=== PATIENT | male | born 1975 | race Caucasian/White ===

== ENCOUNTER 2016-12-15 13:40 | Emergency (ER) | payer BC ==
[~2016-12-15] VITALS: Ht 177.8 cm; Wt 115.0 kg
[~2016-12-15 13:40] MED LIST: SOTA80TA18 PO; WARF7.5T PO
[2016-12-15] MEDS ORDERED: SODIUM CHLORIDE 0.9% 1,000ML IVBOLUS ONE (14:30)
[2016-12-15] MEDS ORDERED: SODIUM CHLORIDE FLUSH 10ML SYR IVF ONE (14:30)
[2016-12-15 14:40] LABS: BLOOD UREA NITROGEN 12 mg/dL (7-18)
[2016-12-15 14:48] LABS: IS PT STATUS REG ER OR PRE ER? YES
[2016-12-15] MEDS ORDERED: PROPOFOL 10 MG/ML, 20ML ONE (15:24)
[2016-12-15] MEDS ORDERED: PROPOFOL 10 MG/ML, 20ML IVPush ONE (15:30)
[2016-12-15 18:11] VITALS: BP 142/71
== END 2016-12-15 18:14 | disposition home or self-care (01) ==
LOC: ED 17:30
DX: I48.0 Paroxysmal atrial fibrillation (principal); I74.9 Embolism and thrombosis of unspecified artery; R00.2 Palpitations; I48.92 Unspecified atrial flutter
CPT/HCPCS: 36415; 80048; 82040; 84484; 85025; 85610; 85730; 93005; 96361; 96374; 99291; J2704; J7030

== ENCOUNTER 2017-07-20 09:07 | Emergency (ER) | payer BC ==
[~2017-07-20] VITALS: Ht 177.8 cm; Wt 113.5 kg
[2017-07-20] MEDS ORDERED: DILT120T3 PO (09:39)
[2017-07-20] MEDS ORDERED: SOTA160T13 PO (09:39)
[2017-07-20] MEDS ORDERED: WARF7.5T PO (09:39)
[2017-07-20] MEDS ORDERED: WARF5TAB PO (09:39)
[2017-07-20 10:13] LABS: BASOPHILS # (AUTO) 0.03 x10^3/uL (0-0.1); BASOPHILS % (AUTO) 0 % (0-1); EOSINOPHILS # (AUTO) 0.24 x10^3/uL (0-0.4); EOSINOPHILS % (AUTO) 3 % (1-7); LYMPHOCYTES # (AUTO) 1.52 x10^3/uL (1-3.4); LYMPHOCYTES % (AUTO) 21 % (22-44); MD NO; MEAN CORPUSCULAR HEMOGLOBIN 28.9 pg (27.5-34.5); MEAN CORPUSCULAR HGB CONC 32.9 g/dL (33.2-36.2); MEAN CORPUSCULAR VOLUME 87.7 fL (81-97); MEAN PLATELET VOLUME 7.7 fL (7.4-10.4); MONOCYTES # (AUTO) 1.01 x10^3/uL (0.2-0.8); MONOCYTES % (AUTO) 14 % (2-9); NEUTROPHILS # (AUTO) 4.54 x10^3/uL (1.8-6.8); NEUTROPHILS % (AUTO) 62 % (42-75); PLATELET COUNT 262 x10^3/uL (130-400); RED BLOOD COUNT 5.13 x10^6/uL (4.38-5.82); RED CELL DISTRIBUTION WIDTH 15.1 % (9.4-14.8)
[2017-07-20 10:21] LABS: INTERNATIONAL NORMALIZED RATIO 2.47 (0.93-1.1); PROTHROMBIN TIME 25.2 Seconds (9.6-11.5)
[2017-07-20 10:27] LABS: ALBUMIN 3.7 g/dL (3.4-5.0); ANION GAP 6 mmol/L (5-15); CALCIUM 8.6 mg/dL (8.5-10.1); CHLORIDE 109 mmol/L (98-107); CREATININE 0.84 mg/dL (0.7-1.3)
[2017-07-20 10:31] LABS: TROPONIN I < 0.015 ng/mL (0.000-0.045)
[2017-07-20] MEDS ORDERED: ETOMIDATE 20 MG/10 ML IVPush ONE (11:00)
[2017-07-20] MEDS ORDERED: ETOMIDATE 20 MG/10 ML ONE ×2 (11:33→11:43)
[2017-07-20] MEDS ORDERED: LORazepam 2 MG/ML, 1ML ONE (11:56)
[2017-07-20] MEDS ORDERED: FENTANYL PF 100 MCG/2ML IV ONE (12:00)
[2017-07-20 13:13] VITALS: BP 116/66
== END 2017-07-20 13:15 | disposition home or self-care (01) ==
LOC: ED 10:43
DX: I48.2 Chronic atrial fibrillation (principal); I48.92 Unspecified atrial flutter; Z95.2 Presence of prosthetic heart valve
CPT/HCPCS: 36415; 71045; 80048; 82040; 84484; 85025; 85610; 92960; 93005; 99152; 99153

== ENCOUNTER 2017-11-25 08:37 | Emergency (ER) | payer BC ==
[~2017-11-25] VITALS: Ht 177.8 cm; Wt 106.8 kg
[~2017-11-25 08:37] MED LIST changes: +DILT120T3 PO; +SOTA160T13 PO; +WARF5TAB PO
[2017-11-25] MEDS ORDERED: VERA120T5 PO (09:02)
[2017-11-25] MEDS ORDERED: SODIUM CHLORIDE FLUSH 10ML SYR IVF ONE (09:30)
[2017-11-25 09:51] LABS: BASOPHILS # (AUTO) 0.05 x10^3/uL (0-0.1); BASOPHILS % (AUTO) 1 % (0-1); EOSINOPHILS % (AUTO) 2 % (1-7); LYMPHOCYTES # (AUTO) 1.77 x10^3/uL (1-3.4); LYMPHOCYTES % (AUTO) 21 % (22-44); MD NO; MEAN CORPUSCULAR HEMOGLOBIN 29.3 pg (27.5-34.5); MEAN CORPUSCULAR HGB CONC 33.3 g/dL (33.2-36.2); MEAN CORPUSCULAR VOLUME 87.9 fL (81-97); MONOCYTES # (AUTO) 1.07 x10^3/uL (0.2-0.8); MONOCYTES % (AUTO) 13 % (2-9); NEUTROPHILS # (AUTO) 5.44 x10^3/uL (1.8-6.8); NEUTROPHILS % (AUTO) 64 % (42-75); PLATELET COUNT 166 x10^3/uL (130-400); RED BLOOD COUNT 4.66 x10^6/uL (4.38-5.82); RED CELL DISTRIBUTION WIDTH 16.6 % (9.4-14.8)
[2017-11-25 09:59] LABS: ALBUMIN 3.9 g/dL (3.4-5.0); ANION GAP 6 mmol/L (5-15); CALCIUM 8.5 mg/dL (8.5-10.1); CHLORIDE 108 mmol/L (98-107); CREATININE 0.89 mg/dL (0.7-1.3)
[2017-11-25 10:03] LABS: TROPONIN I < 0.015 ng/mL (0.000-0.045)
[2017-11-25 10:05] LABS: INTERNATIONAL NORMALIZED RATIO 2.23 (0.93-1.1); PROTHROMBIN TIME 22.6 Seconds (9.6-11.5)
[2017-11-25] MEDS ORDERED: PROPOFOL 10 MG/ML, 20ML ONE (10:32)
[2017-11-25] MEDS ORDERED: PROPOFOL 10 MG/ML, 20ML IVPush ONE (11:30)
[2017-11-25 12:21] VITALS: BP 122/86
== END 2017-11-25 12:42 | disposition home or self-care (01) ==
LOC: ED 11:16
DX: I48.0 Paroxysmal atrial fibrillation (principal); I48.92 Unspecified atrial flutter
CPT/HCPCS: 36415; 71045; 80048; 82040; 83880; 84484; 85025; 85610; 85730; 92960; 93005; 99152; 99153; 99285; J2704

== ENCOUNTER 2018-02-10 07:39 | Emergency (ER) | payer BC ==
[~2018-02-10] VITALS: Ht 177.8 cm; Wt 110.8 kg
[~2018-02-10 07:39] MED LIST changes: +VERA120T5 PO
[2018-02-10 08:31] LABS: BASOPHILS # (AUTO) 0.06 x10^3/uL (0-0.1); BASOPHILS % (AUTO) 1 % (0-1); EOSINOPHILS # (AUTO) 0.18 x10^3/uL (0-0.4); EOSINOPHILS % (AUTO) 3 % (1-7); LYMPHOCYTES # (AUTO) 1.63 x10^3/uL (1-3.4); LYMPHOCYTES % (AUTO) 25 % (22-44); MD NO; MEAN CORPUSCULAR HEMOGLOBIN 28.9 pg (27.5-34.5); MEAN CORPUSCULAR HGB CONC 33.1 g/dL (33.2-36.2); MEAN CORPUSCULAR VOLUME 87.5 fL (81-97); MEAN PLATELET VOLUME 8.4 fL (7.4-10.4); MONOCYTES # (AUTO) 0.86 x10^3/uL (0.2-0.8); MONOCYTES % (AUTO) 13 % (2-9); NEUTROPHILS # (AUTO) 3.94 x10^3/uL (1.8-6.8); NEUTROPHILS % (AUTO) 59 % (42-75); PLATELET COUNT 218 x10^3/uL (130-400); RED BLOOD COUNT 4.91 x10^6/uL (4.38-5.82); RED CELL DISTRIBUTION WIDTH 17.3 % (9.4-14.8)
[2018-02-10 08:41] LABS: INTERNATIONAL NORMALIZED RATIO 2.71 (0.93-1.1); PROTHROMBIN TIME 27.4 Seconds (9.6-11.5)
[2018-02-10 08:42] LABS: ALANINE AMINOTRANSFERASE 38 U/L (12-78); ALBUMIN 3.7 g/dL (3.4-5.0); ANION GAP 6 mmol/L (5-15); CALCIUM 8.4 mg/dL (8.5-10.1); CHLORIDE 111 mmol/L (98-107); CREATININE 0.87 mg/dL (0.7-1.3)
[2018-02-10 08:47] LABS: ALKALINE PHOSPHATASE 79 U/L (45-117); BILIRUBIN,TOTAL 0.6 mg/dL (0.2-1.0); TOTAL PROTEIN 7.4 g/dL (6.4-8.2); TROPONIN I < 0.015 ng/mL (0.000-0.045)
[2018-02-10] MEDS ORDERED: ETOMIDATE 20 MG/10 ML ONE (09:48)
[2018-02-10 11:22] VITALS: BP 116/71
== END 2018-02-10 11:25 | disposition home or self-care (01) ==
LOC: ED 08:54
DX: I48.0 Paroxysmal atrial fibrillation (principal); Z86.14 Personal history of Methicillin resistant Staphylococcus aureus infection
CPT/HCPCS: 36415; 71045; 80053; 83880; 84484; 85025; 85610; 92960; 93005